=== PATIENT | female | born 1980 | race Caucasian/White ===

== ENCOUNTER 2021-10-20 08:28 | Outpatient (CLI) | payer BC | END 2021-10-20 08:29 | disposition home or self-care (01) | LOC: CSHMAMMO 08:28 | PROVIDERS: ATTEND Family Medicine Sports Medicine | DX: Z12.31 Encounter for screening mammogram for malignant neoplasm of breast (principal) | CPT/HCPCS: 77063; 77067 ==

== ENCOUNTER 2022-10-27 10:01 | Outpatient (CLI) | payer BC | END 2022-10-27 10:02 | disposition home or self-care (01) | LOC: CSHMAMMO 10:01 | PROVIDERS: ATTEND Obstetrics & Gynecology | DX: Z12.31 Encounter for screening mammogram for malignant neoplasm of breast (principal) | CPT/HCPCS: 77063; 77067 ==

== ENCOUNTER 2024-11-19 09:22 | Outpatient (CLI) | payer OTHER | END 2024-11-19 09:23 | disposition home or self-care (01) | LOC: CSHMAMMO 09:22 | PROVIDERS: ATTEND Obstetrics & Gynecology | DX: Z12.31 Encounter for screening mammogram for malignant neoplasm of breast (principal) | CPT/HCPCS: 77063; 77067 ==